=== PATIENT | female | born 1950 | race Caucasian/White ===

== ENCOUNTER 2019-11-17 06:39 | Day surgery (SDC) | payer MEDICAID, MEDICARE ==
[2019-11-12 11:34] LABS: AMORPHOUS SEDIMENT,URINE 1+ /HPF; APPEARANCE,URINE SLIGHTLY-CLOUDY; BILIRUBIN,URINE NEGATIVE (NEGATIVE); COLOR,URINE YELLOW; GLUCOSE, URINE NEGATIVE (NEGATIVE); KETONES,URINE NEGATIVE (NEGATIVE); LEUKOCYTE ESTERASE,URINE SMALL (NEGATIVE); NITRITE,URINE NEGATIVE (NEGATIVE); PROTEIN,URINE NEGATIVE (NEGATIVE)
[2019-11-12 11:49] LABS: HEMATOCRIT 43.4 % (36.0-47.0); HEMOGLOBIN 14.6 g/dL (12.0-15.5); MEAN CORPUSCULAR HGB CONC 33.7 g/dL (32.0-36.0); MEAN CORPUSCULAR VOLUME 92 fl (80-97); PLATELET COUNT 254 10^3/uL (150-450); RED BLOOD COUNT 4.71 10^6/uL (3.72-5.28); RED CELL DISTRIBUTION WIDTH 14.2 % (11.5-14.0); WHITE BLOOD COUNT 4.9 10^3/uL (4.0-10.5)
[2019-11-12 12:01] LABS: ANION GAP 12 (5-19); BLOOD UREA NITROGEN 15 mg/dL (7-20); CALCIUM 9.4 mg/dL (8.4-10.2); CARBON DIOXIDE 25 mmol/L (22-30); CHLORIDE 105 mmol/L (98-107); GLUCOSE 93 mg/dL (75-110); POTASSIUM 4.7 mmol/L (3.6-5.0)
--- NOTE | 2019-11-12 13:01 | RADIOLOGY REPORT (SQ) ---
EXAM DESCRIPTION: CHEST PA/LATERAL IMAGES COMPLETED DATE/TIME: 11/12/2019 10:51 am REASON FOR STUDY: PRE-OP COMPARISON: None. EXAM PARAMETERS: NUMBER OF VIEWS: Three-view TECHNIQUE: Digital Frontal and Lateral radiographic views of the chest acquired. RADIATION DOSE: NA LIMITATIONS: none FINDINGS: LUNGS AND PLEURA: No opacities, masses or pneumothorax. No pleural effusion. MEDIASTINUM AND HILAR STRUCTURES: No masses or contour abnormalities. HEART AND VASCULAR STRUCTURES: Heart normal size. No evidence for failure. BONES: No acute findings. HARDWARE: None in the chest. OTHER: No other significant finding. IMPRESSION: NO SIGNIFICANT RADIOGRAPHIC FINDING IN THE CHEST. TECHNICAL DOCUMENTATION: JOB ID: [id number] 2010 [employer]- All Rights Reserved Reading location - IP/workstation name: [email or web address]
--- NOTE | 2019-11-12 18:41 | EKG REPORT ---
SEVERITY:- ABNORMAL ECG - SINUS RHYTHM IRBBB AND LPFB LOW VOLTAGE IN FRONTAL LEADS : Confirmed by: Gio Juarez 12-Nov-2019 18:40:25
[~2019-11-17 06:39] MED LIST: CEFAZOLIN 1 GM/D5W RTU 1 GM/50 ML RTUPB IV PRN; LACTATED RINGERS 1000 ML IV PRN; LIDOCAINE 0.5% INJ-PF (5 MG/ML) 50 ML SDV SUBCUT PRN
[2019-11-17] MEDS ORDERED: CEFAZOLIN 1 GM/D5W RTU 1 GM/50 ML RTUPB IV ONE (07:24)
[2019-11-17] MEDS ORDERED: MIDAZOLAM 2 MG/2 ML INJ ONE (08:04)
[2019-11-17] MEDS ORDERED: FENTANYL CITRATE INJ/PF 100 MCG/2 ML AMPUL ONE (08:04)
[2019-11-17] MEDS ORDERED: LIDOCAINE 1% INJ-PF (10 MG/ML) 30 ML SDV ONE (08:05)
[2019-11-17] MEDS ORDERED: ROPIVACAINE HCL 0.5% INJ/PF (5 MG/1 ML) 30 ML SDV ONE (08:17)
[2019-11-17] MEDS ORDERED: EPINEPHRINE INJ/PF 1 MG/1 ML AMPULE ONE (09:13)
[2019-11-17] MEDS ORDERED: PROMETHAZINE HCL INJ 25 MG/1 ML VIAL IV PRN ×2 (10:27)
[2019-11-17] MEDS ORDERED: MEPERIDINE HCL/PF INJ 25 MG/1 ML DISP.SYRIN IV PRN (10:27)
[2019-11-17] MEDS ORDERED: FENTANYL CITRATE INJ/PF 100 MCG/2 ML AMPUL IV PRN ×3 (10:27)
[2019-11-17] MEDS ORDERED: HYDROMORPHONE HCL INJ/PF 2 MG/ML AMPULE IV PRN ×2 (10:27→11:55)
[2019-11-17] MEDS ORDERED: DIPHENHYDRAMINE HCL 50 MG/ML VIAL IV PRN (10:27)
[2019-11-17] MEDS ORDERED: OXYCODONE-ACETAMINOPHEN 5-325 MG TABLET PO PRN (11:55)
[2019-11-17] MEDS ORDERED: ONDANSETRON HCL INJ/PF 4 MG/2 ML SDV IV ONE (11:55)
--- NOTE | 2019-11-17 11:55 | Discharge Summary ---
Discharge Summary (SDC) - Discharge Final Diagnosis: Right shoulder rotator cuff tear Date of Surgery: 11/17/19 Condition: Good Treatment or Instructions: Schedule Follow Up w/ Dr. Mario Alberto Delacruz @ [facility] to be seen in 10-14 days or as scheduled [place]: [place]: [place]: May remove dressing on postop day #3, keep incision covered and dry. Cryocuff to shoulder May begin pendulum exercises along w/ hand, wrist and elbow range of motion 4x per day or as tolerated. May remove sling for hygiene purposes otherwise continue it at all times. Stool softener of choice when on pain medication. USE OF VHUS-WNG-FRTHQEL IBUPROFEN: Ibuprofen (Advil, Nuprin, Medipren, Motrin IB) is a medication for fever and pain control. In addition, it has anti- inflammatory effects which may be beneficial, especially in the treatment of injuries. It's best to take ibuprofen with food. Persons with ulcer disease or allergy to aspirin should notify their physician of this before taking ibuprofen. Ibuprofen can be given every four to six hours, for a total of four doses daily. Age Pain or fever dose Antiinflammatory dose 6-8 yr 200 mg (1 tab) 200 mg (1 tab) 9-11 yr 200 mg (1 tab) 200-400 mg (1-2 tab) 11-14 yr 200-400 mg (1-2 tab) 400 mg (2 tab) 15-adult 400 mg (2 tab) 600 mg (3 tab) ORAL NARCOTIC MEDICATION: You have been given a prescription for pain control. This medication is a narcotic. It's best taken with food, as nausea can result if taken on an empty stomach. Don't operate machinery or drive within six hours of taking this medication. Do not combine this medicine with alcohol, or with any medication which can cause sedation (such as cold tablets or sleeping pills) unless you get permission from the physician. Narcotics tend to cause constipation. If possible, drink plenty of fluids and eat a diet high in fiber and fruits. Please be aware that prescription narcotics also have the potential for abuse. People become addicted to these medications because of the general sense of wellbeing that they induce. This feeling along with a significant reduction in tension, anxiety, and aggression provides a stimulating seductive quality to these drugs. Once your pain is under control, we encourage you to discard your unused narcotics. Prescriptions: Ketorolac Tromethamine [Toradol 10 mg Tablet] 10 mg PO Q8HP PRN #12 tablet PRN Reason: Ondansetron HCl [Zofran 8 mg Tablet] 4 mg PO Q8HP PRN #30 tablet PRN Reason: Oxycodone HCl/Acetaminophen [Percocet 5-325 mg Tablet] 1 tab PO Q6 #25 tab Referrals: MAUREEN GUALLPA MD [Primary Care Provider] - Discharge Diet: As Tolerated Respiratory Treatments at Home: Deep Breathing/Coughing, Incentive Spirometer Discharge Activity: No Lifting Over 10 Pounds, No Lifting/Push/Pulling Report the Following to Your Physician Immediately: Fever over 101 Degrees, Unusual Bleeding, Redness, Swelling, Warmth, Increased Soreness
[2019-11-17] MEDS ORDERED: HYDROMORPHONE HCL INJ/PF 2 MG/ML AMPULE ONE (12:00)
[2019-11-17] MEDS ORDERED: PROPOFOL INJ 200 MG/20 ML VIAL IV ONE (12:01)
--- NOTE | 2019-11-17 12:01 | Operative Report ---
Operative Report DATE OF SURGERY: 11/17/19 PREOPERATIVE DIAGNOSIS: Right shoulder partial rotator cuff tear, impingement s yndrome, AC joint arthritis degenerative labral tear POSTOPERATIVE DIAGNOSIS: Same plus high-grade partial-thickness rotator cuff tear, proximal biceps tendon rupture OPERATION: Right shoulder arthroscopy with subacromial decompression, acromioplasty, distal clavicle excision rotator cuff debridement SURGEON: LISA GRAVES ANESTHESIA: GA COMPLICATIONS: None ESTIMATED BLOOD LOSS: Minimal PROCEDURE: Indication for above procedure: 69-year-old female with longstanding history of right shoulder discomfort. Attempted conservative measures including home exercise program, anti- inflammatories and injections. After discussing risks and benefits of operative procedure decision was made to proceed with operative intervention. Postoperative expectations, outcomes and rehabilitation were explained patient verbalized understanding consented for surgical procedure. Procedure In Detail: Patient was seen and evaluated in the preoperative holding area. The RIGHT upper extremity was initialized and marked. Patient received 2g of Ancef IV for bacterial prophylaxis. Patient was taken back to the operative room where transferred to the operative table and placed under general anesthesia. Once they were adequately anesthetized patient placed in the beachchair position. Cervical spine was placed in neutral position all bony prominences were padded including nonoperative upper extremity and bilateral lower extremity. A surgical team debriefing was performed ensuring all instrumentation was available, the surgical procedure was discussed with possible concerns reviewed. The upper extremity was prepped with ChloraPrep draped in a sterile fashion. A timeout was done identifying correct patient, procedure and extremity everyone in attendance agree with this and verbalized no concerns. Posterior portal was established arthroscope was introduced into the glenohumeral joint. By triangulation anterior portal was established. Diagnostic arthroscopy demonstrated partial thickness tearing of the rotator cuff along the infraspinatus with intact supraspinatus. There was complete rupture of the biceps tendon. The labrum was debrided back to a stable base. No evidence of subscapularis involvement. No evidence of glenohumeral degenerative changes. Arthroscope was then introduced into the subacromial space via triangulation lateral portal was established. Subacromial decompression was performed c oracoacromial ligament was elevated but not excised. Acromioplasty was performed with arthroscopic bur. The anterior portal distal clavicle was identified with degenerative changes. 8 mm of the distal clavicle was then excised with the arthroscopic bur. Shoulder was placed through full range of motion to ensure no evidence of impingement. Diagnostic arthroscopy demonstrated high-grade partial-thickness tear of the infraspinatus with tear along the bursal side which extended just adjacent to the articular side. There is notable elevation and dogear of the tear at this level. With gentle debridement the tear was completed to a full-thickness tear. Decision was made to proceed with repair. Greater tuberosity was debrided to cancellus bone. A Arthrex swivel lock anchor was placed on the medial row. Horizontal mattress was passed and secured. Fiber tape suture was placed. The sutures were then loaded into an additional swivel lock anchor it was attempted to place just lateral to the prior anchor however patient had significant poor bone quality at this level and thus the anchor had to be displaced slightly more anteriorly along the lateral row. This was then secured which brought the rotator cuff firmly down to bone. A small rent in dog ear was left anteriorly and thus an additional fiber tape was placed anteriorly and loaded into a swivel lock anchor along the lateral row firmly bringing the rotator cuff down to bone. Shoulder was then placed through range of motion the rotator cuff mobilized as a complete unit there is no evidence of residual dogears or extension into the articular surface. Skin incisions were closed with interrupted 3-0 nylon suture. Wound was dressed with Xeroform 4 x 4's ABD. Patient was placed in a arc sling. Sponge counts, instrument counts, needle counts were correct. Patient was then awoken from anesthesia. Transferred from the operating room table to the operating room stretcher. There was no intraoperative complications patient tolerated procedure well stable to PACU. Postop plan: Patient will begin physical therapy 6 weeks postoperatively as per rotator cuff repair protocol.
[2019-11-17] MEDS ORDERED: ESMOLOL HCL INJ/PF 100 MG/10 ML SDV IV ONE (14:27)
[2019-11-17] MEDS ORDERED: DEXAMETHASONE SOD PHOSPHATE INJ 4 MG/1 ML VIAL ONE (14:27)
[2019-11-17] MEDS ORDERED: KETOROLAC TROMETHAMINE 60 MG/2 ML SDV ONE (14:27)
[2019-11-17] MEDS ORDERED: GLYCOPYRROLATE 1 MG/5 ML VIAL ONE (14:27)
[2019-11-17] MEDS ORDERED: ONDANSETRON HCL INJ/PF 4 MG/2 ML SDV ONE (14:27)
[2019-11-17] MEDS ORDERED: NEOSTIGMINE METHYLSULFATE 10 MG/10 ML VIAL ONE (14:27)
[2019-11-17 15:43] VITALS: BP 134/90
== END 2019-11-17 15:10 | disposition home or self-care (01) ==
LOC: OROUT 06:39
PROVIDERS: ATTEND Orthopaedic Surgery
DX: M75.41 Impingement syndrome of right shoulder (principal); M19.011 Primary osteoarthritis, right shoulder; M75.111 Incomplete rotator cuff tear or rupture of right shoulder, not specified as traumatic; M66.811 Spontaneous rupture of other tendons, right shoulder; M25.511 Pain in right shoulder; I10 Essential (primary) hypertension; E78.5 Hyperlipidemia, unspecified; N32.81 Overactive bladder; Z79.899 Other long term (current) drug therapy; Z03.818 Encounter for observation for suspected exposure to other biological agents ruled out
CPT/HCPCS: 29822; 29824; 93005; 36415; 85027; 80048; 81001; 71046; 93010; C1713 ×3; U0003; J2795; J2250; J0690; J1100; J0171; J1885; J3010; J3490 ×3; J2710; J1170; J2405; J2704; C9803; 1630; 64415; 76942; 87635